=== PATIENT | male | born 1960 ===

== ENCOUNTER 2023-09-12 07:29 | Day surgery (SDC) | payer OTHER, SELFPAY ==
[2023-09-12] VITALS (15 sets, daily range): BP systolic 104–130; BP diastolic 69–95; BMI 31.9
--- NOTE | 2023-09-12 10:10 | ITS.CL.CATH ---
[facility] - Catheterization
Cardiac Catheterization
Procedure Report:
CARDIAC CATHETERIZATION REPORT
Date of Procedure: 09/12/2023
Referring: Rhett Maharaj MD
Indication: Chest pain
HEMODYNAMIC DATA
AO: 118/89
LV: 118/14
LEFT VENTRICULOGRAPHY: Normal left ventricular wall motion with EF 62%
CORONARY ANGIOGRAPHY
Dominance: Right
Left Main: Normal
LAD: Normal
Circumflex: Normal
RCA: Mild ectasia without any focal areas of stenosis
Closure Device: None-the procedure was performed via the right radial artery. The Venkata's test was normal prior to the procedure.
Radiation (mGy): 261
DAP (cm2.Gy): 26.0
Fluoroscopy time: 2.2 minutes
CONCLUSIONS
1: Normal left ventricular function with EF 62%
2: No significant CAD
3. The patient arrived to the catheterization lab recovery room from home and was found to be in A-fib with ventricular rate 90/min. This is apparently a new diagnosis. We will stop aspirin and he will begin Eliquis 5 mg twice daily then see
Nicko in 2-4 weeks to consider arranging DCCV
Copy to: Rhett Maharaj MD, Bryant Mariee MD
Nehemiah Gibson MD, [facility], [facility]
[2023-09-12] MEDS: NSS 1000 IV (10:24)
--- NOTE | 2023-09-12 12:17 | W.PN.UPDATE ---
Update Note
Progress Note Update
63 y/o M s/p cardiac catheterization. He feels well following his procedure: no CP or SOB. Tolerating diet. Radial cath site C/D/I, no hematoma.
He was in Atrial Fibrillation on telemetry on admission this morning, confirmed by ECG. He will start taking Eliquis this evening.
Activity restrictions reviewed.
Follow up with Dr. Rhett Maharaj on 10/07/23.
Stable for discharge to home.
[2023-09-12] MEDS: LOW STRENGTH ASPIRIN 324 MG PO (13:13)
== END 2023-09-12 14:00 | disposition home or self-care (01) ==
LOC: CATH 07:29
PROVIDERS: ATTENDING PHYSICIAN Internal Medicine Cardiovascular Disease; FAMILY PHYSICIAN Internal Medicine; OTHER PHYSICIAN Internal Medicine Cardiovascular Disease
DX: I25.10 Atherosclerotic heart disease of native coronary artery without angina pectoris (principal); R07.9 Chest pain, unspecified; Z79.01 Long term (current) use of anticoagulants
CPT/HCPCS: 93005; 93458; C1894; Q9967